=== PATIENT | female | born 1945 | race Caucasian/White ===

== ENCOUNTER 2018-07-02 14:31 | Emergency (ER) | payer MEDICARE, OTHER ==
[~2018-07-02] VITALS: Ht 167.6 cm; Wt 93.2 kg
[~2018-07-02 14:31] MED LIST: ACCUPRIL10 MG; ACCUPRIL10 MG PO; ACCURETIC1 TAB PO; ALPRAZOLAM0.5 MG PO; ANTIVERT12.5 MG PO; ANTIVERT25 MG; ANTIVERT25 MG PO; ASPIRIN 8181 MG PO; CIPRO XR500 MG PO; CIPROFLOXACN500 MG PO; CRESTOR10 MG PO; FISH OIL1000 MG PO; FLUARIX QUADRIV1 IN2 IM; FLUARIX QUADRIV1 INJ IM; FLUOXETINE20 MG PO; FLUZONE SPLT1 M1 IM; GLIPIZIDE ER5 MG PO; IBUPROFEN600 MG PO; JANUVIA100 MG PO; LIPITOR10 MG PO; LORTAB 7.5 PO; LORTAB 7.5-3251 TAB PO; MEDROL DOSEPAK4 MG PO; PAROXETINE HCL20 MG PO; PAROXETINE20 MG PO; PAXIL PO; PRANDIN1 MG PO; PREVNAR 13 IM; SEROQUEL25 MG PO; SIMVASTATIN20 MG PO; TRAZODONE50 MG PO; TRICOR145 MG PO; VITAMIN D31000 UNI1 PO; XANAX0.5 MG PO
[2018-07-02] MEDS ORDERED: ACYCLOVIR800 MG PO (15:04)
[2018-07-02] MEDS ORDERED: LYRICA50 MG PO (15:04)
[2018-07-02] MEDS ORDERED: PERCOCET 5/321 COMBO PO (15:05)
[2018-07-02] MEDS ORDERED: FIORICET 50-3001 CAP PO (15:07)
[2018-07-02] MEDS ORDERED: HYDROXYZ HCL25 MG PO (15:09)
[2018-07-02] MEDS ORDERED: REPAGLINIDE1 MG PO (15:10)
[2018-07-02] MEDS ORDERED: PIOGLITAZONE HC30 MG PO (15:10)
[2018-07-02] MEDS ORDERED: [UNRECOGNIZED DRUG - OTHER] TOP (15:10)
[2018-07-02] MEDS ORDERED: LIDOCAINE TOP (15:10)
[2018-07-02] MEDS ORDERED: PAROXETINE HCL40 MG PO (15:11)
[2018-07-02] MEDS ORDERED: ATORVASTATIN CA10 MG PO (15:11)
[2018-07-02] MEDS ORDERED: JANUVIA100 MG PO (15:12)
[2018-07-02] MEDS ORDERED: DICLOFENAC SODI75 M1 PO (15:12)
[2018-07-02] MEDS ORDERED: TRICOR145 MG PO (15:13)
[2018-07-02] MEDS ORDERED: HYDRO PO (15:13)
[2018-07-02] MEDS ORDERED: QUINAPRIL PO (15:13)
[2018-07-02 15:35] VITALS: BP 158/83
== END 2018-07-02 15:35 | disposition home or self-care (01) ==
LOC: ED 14:31
DX: B02.29 Other postherpetic nervous system involvement (principal)